=== PATIENT | female | born 1990 | race African-American/Black ===

== ENCOUNTER 2018-07-26 23:30 | Emergency (ER) | payer OTHER, SELFPAY ==
[2018-07-27] MEDS ORDERED: Ondansetron PF 4 MG/2 ML Vial ONE (00:25)
== END 2018-07-27 03:05 | disposition home or self-care (01) ==
LOC: ERS 23:30
DX: F10.129 Alcohol abuse with intoxication, unspecified (principal)
CPT/HCPCS: 96361; 96374; J2405

== ENCOUNTER 2018-11-17 15:39 | Inpatient (IN) | payer MEDICAID, OTHER, SELFPAY ==
[2018-11-17] MEDS ORDERED: Sodium Chloride 0.9% 10 ML ONE (17:32)
[2018-11-17 17:52] VITALS: BMI 22.4
[2018-11-17 19:07] LABS: Band 19 % (5-11); Hemoglobin 10.8 g/dL (12.0-16.0); Lymphocytes 9 % (21-51); MDiff Complete? YES; Mean Corpuscular Volume 81.8 fL (78.0-98.0); Mean Platelet Volume 7.8 fL (7.4-10.4); Monocytes 4 % (0-10); Neutrophil 68 % (42-75); Platelet Count 220 thou/uL (130-400); Platelet Morphology Comment Appears Adequate; RBC Distribution Width 14.7 % (11.5-14.5); Red Blood Cell (RBC) Count 3.99 mill/uL (4.20-5.40); White Blood Cell (WBC) Count 16.3 thou/uL (4.8-10.8)
[2018-11-17 19:25] LABS: Syphilis Antibody Nonreactive (Nonreactive); Syphilis Antibody Index 0.02 S/CO (<1.00 Non-Reactive)
[2018-11-17 19:26] LABS: HBSAg Index 0.29 S/CO (0-0.99); HIV (1/2) Antibody/Antigen Non-Reactive (NonReactive); HIV 1/2 INDEX 0.16 S/CO (<1.00); Hep B Surf Ag Non-Reactive S/CO (NonReactive); Thyroid Stimulating Hormone 0.4246 uIU/mL (0.35-4.94)
[2018-11-17] MEDS: cefTRIAXone\\ROCEPHIN 1 GM in Sodium Chloride 0.9% 100 ML IVPB SCH (19:57)
[2018-11-17] MEDS: Sodium Chloride 0.9% 1,000 ML IV SCH (19:58)
[2018-11-17] MEDS ORDERED: Ondansetron ODT 4 MG TAB PO PRN (20:33)
--- NOTE | 2018-11-17 20:44 | PDOC.FPROB ---
FMR OB H&P: HPI - History of Present Illness Chief Complaint: Back pain, fever History of Present Illness: 28 yo @ 16.5 wks by 1T US is admitted from [facility] for UTI with concern for possible pyelo. 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 Has had dysuria, vaginal itching intermittently since then. Endorses R sided low back pain and lower abdominal soreness. Reports yellow/white vaginal discharge for several weeks as well. Denies N/V. Drinking fluids well. At [facility] today reportedly had sterile speculum and vaginal exam with concern for cervical opening. Primary Care Physician: [facility] -Isabel FMR OB H&P: Current - Care : 6 Para: 4 Gestational age: 16.5 Dating Criteria: 1T FMR OB H&P: History - Past Medical History PMH: Genital herpes, prior gonorrhea infection - OB History OB History: 4 at term 1 spontaneous - Surgical History Sx History: None - Social History Social History: No tobacco, alcohol, drug use. - Family History Family History: DM, HTN FMR OB H&P: Medications - Current Home Medications: Medication Instructions Recorded Confirmed Type Pnv No.103/Folic/Om3s/Fish Oil 1 tab PO DAILY 11/17/18 11/17/18 History [ Gummies] Allergies/Adverse Reactions: Allergies Allergy/AdvReac Type Severity Reaction Status Date / Time No Known Allergies Allergy Verified 11/17/18 17:45 FMR OB H&P: ROS - Review of Systems General: reports: fever/chills Cardiovascular: denies: chest pain, palpitation Respiratory: denies: cough, shortness of breath Gastrointestinal: denies: abdominal pain, nausea, vomiting, diarrhea Genitourinary (Female): reports: dysuria, vaginal discharge. denies: vaginal bleeding, vaginal pressure Musculoskeletal: reports: pain, tenderness Integumentary: denies: rash FMR OB H&P: Vital Signs - Maternal Vital signs: Vital Signs - First Documented Temp Pulse Resp BP Pulse Ox 100.4 F H 105 H 18 107/58 L 99 11/17/18 17:43 11/17/18 17:43 11/17/18 17:43 11/17/18 17:43 11/17/18 17:43 FMR OB H&P: Physical Exam - Physical Exam General: NAD HEENT: normocephalic and atraumatic Heart: RRR, normal S1/S2, no murmurs/rubs/gallops General: CTAB, no respiratory distress Abdomen: soft, gravid, non-tender Musculoskeletal: pulses present, other (R sided CVA tenderness) Skin: no rash, good tugor Lymphatic: no unusual bruising or bleeding Psychiatric: intact recent and remote memory FMR OB H&P: Results - Labs Lab results: Laboratory Results - last 24 hr 11/17/18 11/17/18 11/17/18 18:28 18:28 18:28 WBC 16.3 H RBC 3.99 L Hgb 10.8 L Hct 32.7 L MCV 81.8 MCH 27.0 MCHC 33.0 RDW 14.7 H Plt Count 220 MPV 7.8 Neutrophils % (Manual) 68 Band Neuts % (Manual) 19 H Lymphocytes % (Manual) 9 L Monocytes % (Manual) 4 Neutrophils # Not Reportable Lymphocytes # Not Reportable Plt Morphology Comment Appears Adequate Sickle Cell Screen Negative For HGB S TSH 3rd Generation 0.4246 Syphilis IgG/IgM Ab Nonreactive Hep Bs Antigen Non-Reactive HIV 1&2 Antigen & Ab Non-Reactive Blood Type Antibody Screen 11/17/18 11/17/18 18:42 19:36 WBC RBC Hgb Hct MCV MCH MCHC RDW Plt Count MPV Neutrophils % (Manual) Band Neuts % (Manual) Lymphocytes % (Manual) Monocytes % (Manual) Neutrophils # Lymphocytes # Plt Morphology Comment Sickle Cell Screen TSH 3rd Generation Syphilis IgG/IgM Ab Hep Bs Antigen HIV 1&2 Antigen & Ab Blood Type A POSITIVE A POSITIVE Antibody Screen NEGATIVE FMR OB H&P: A/P - Problem List (1) Sepsis Current Visit: Yes Status: Acute Code(s): A41.9 - SEPSIS, UNSPECIFIED ORGANISM (2) Pyelonephritis affecting Current Visit: Yes Status: Acute Code(s): O23.00 - INFECTIONS OF KIDNEY IN , UNSPECIFIED TRIMESTER (3) Vaginal discharge during Current Visit: Yes Status: Acute Code(s): O26.899 - OTH RELATED CONDITIONS, UNSPECIFIED TRIMESTER; N89.8 - OTHER SPECIFIED NONINFLAMMATORY DISORDERS OF VAGINA Discussion: Date/Time: 11/17/182042 Sepsis 2/2 pyelonephritis vs complicated UTI - fever, questionable CVA tenderness, leukocytosis, tachycardia, fever 100.4 on admission. Tachycardia now improved. - Ucx, Bcx pending - continue rocephin 11/17 - continue LR @ 125 and oral hydration - renal ultrasound and US for cervical length pending Vaginal discharge - GCC, VP3 swabs pending - will treat as appropriate Genital herpes - no visible external lesions - will need to discuss sterile spec exam findings with Dr. Mccoy in am PCP: Isabel Diet: Regular Dispo: admit to inpatient women's floor, expected stay >2 midnights This H&P was discussed with Dr. Chavez and Dr. Levy who agree with the above documentation and plan. Addendum - Attending - Attending Attestation Date/Time: 11/18/18 1114 I personally evaluated the patient and discussed the management with Dr. Maloney on 11/17/2018 I agree with the History, Examination, Assessment and Plan documented above with any addition or exceptions noted below - 28 yo @16 weeks sent from [facility] due to h/o untreated UTI and now with fever and low back pain concern for possible pyelonephritis. Denies N/V. (+) dysuria. (+) vaginal discharge. PMH/PSH /All/Meds reviewed and agree with resident's documentation. T 100.4 VSS Exam repeated by me and agree with resident's findings. Labs pending. A/P: 1) Febrile UTI - repeat urine culture ordered. Start rocephin. Blood culture drawn.
[2018-11-17] MEDS: Acetaminophen 325 MG TAB PO PRN (22:42)
[2018-11-18] MEDS: Sodium Chloride 0.9% 1,000 ML IV SCH ×3 (05:42→21:25)
[2018-11-18 06:13] LABS: Band 8 % (5-11); Eosinophils 1 % (0-10); Hemoglobin 9.4 g/dL (12.0-16.0); Lymphocytes 16 % (21-51); MDiff Complete? YES; Mean Corpuscular HGB CONC 32.9 g/dL (32.0-36.0); Mean Corpuscular Hemoglobin 27.2 pg (27.0-31.0); Mean Corpuscular Volume 82.6 fL (78.0-98.0); Mean Platelet Volume 7.3 fL (7.4-10.4); Monocytes 11 % (0-10); Neutrophil 64 % (42-75); Platelet Count 176 thou/uL (130-400); RBC Distribution Width 14.6 % (11.5-14.5); Red Blood Cell (RBC) Count 3.46 mill/uL (4.20-5.40); White Blood Cell (WBC) Count 9.4 thou/uL (4.8-10.8)
[2018-11-18 06:20] LABS: Anion Gap 9 mmol/L (10-20); BUN (Urea Nitrogen) 5 mg/dL (7.0-18.7); Calc. Creatinine Clearance 130 mL/min (70-130); Calcium 8.3 mg/dL (7.8-10.44); Carbon Dioxide 24 mmol/L (22-29); Chloride 103 mmol/L (98-107); Estimated GFR-MDRD Greater than 90; Glucose 83 mg/dL (70-105); Potassium 3.3 mmol/L (3.5-5.1); Sodium 133 mmol/L (136-145)
--- NOTE | 2018-11-18 07:10 | ULT ---
BILATERAL RENAL ULTRASOUND: Date: 11/18/18 Cruz scale and Doppler color flow performed of the kidneys. INDICATION: Hydronephrosis, UTI, fever. FINDINGS: There is a slight area of prominence of the right renal pelvis. Otherwise, no overt hydronephrosis, b ilaterally. The left kidney is approximately 11 cm in length and the right kidney is between 11-12 cm in length, as demonstrated. No suspicious renal lesions are evident. Urinary bladder is decompressed , which limits evaluation. Doppler color flow reveals appropriate perfusion to each kidney. IMPRESSION: Slight prominence of right renal pelvis. Otherwise, no overt hydronephrosis. As clinically necessary, continued imaging follow-up may be obtained. POS: ROSE
--- NOTE | 2018-11-18 07:30 | ULT ---
PELVIC/OB ULTRASOUND: Date: 11/18/18 CLINICAL HISTORY: Cervical funneling. Evaluation of cervical length in a patient. FINDINGS: There is a live intrauterine gestation with a cardiac activity of the fetus documented at 150 beats/m inute. The fetus is demonstrated in a cephalic lie. Cervical length is approximately 3.4 cm, as demon strated, without sonographic evidence of cervical funneling present. Amniotic fluid volume is subject ively normal. IMPRESSION: 1. Cervical length of 3.4 cm without sonographic evidence to indicate funneling. 2. Live intrauterine gestation as discussed above. POS: ROSE
--- NOTE | 2018-11-18 08:10 | PDOC.OBAPN ---
FMR OB AP PN: Sub - Interval History Hospital Day: 2 Chief Complaint: Pt reports mild R. side back pain. Rates 2 Interval History: Pt denies any fevers overnight. Denies any N/V/D. FMR OB AP PN: Obj - Maternal Vital signs: BP: [87/53] HR: [81] RR: [16] Tmax: [98.4] Pox: [98]% on [RA] Wt: [] - Urine output I&O: 11/17/18 11/18/18 11/19/18 06:59 06:59 06:59 Intake Total 1473 Balance 1473 FMR OB AP PN: Exam - Physical Exam General: NAD, awake, alert and oriented HEENT: normocephalic and atraumatic, grossly normal vision, grossly normal hearing Neck: supple, trachea midline Chest: non-tender to palpation, no lesions Heart: normal S1/S2, no murmurs/rubs/gallops, pulses present, no edema General: CTAB, no respiratory distress, good air movement, no rales/rhonchi (-) , no wheezing Abdomen: soft, gravid, fundus(cm), non-tender, bowel sound present, no masses Deviation from normal: some mild CVA tenderness on the right Musculoskeletal: pulses present, FROM in all four extremities Neurological: sensation to pain,touch and proprioception grossly normal Skin: no rash, capillary refill <2 seconds Lymphatic: no unusual bruising or bleeding Psychiatric: intact recent and remote memory, normal mood and affect FMR OB AP PN: Data - Labs Lab results: Laboratory Results - last 24 hr 11/17/18 11/17/18 11/17/18 18:28 18:28 18:28 WBC 16.3 H RBC 3.99 L Hgb 10.8 L Hct 32.7 L MCV 81.8 MCH 27.0 MCHC 33.0 RDW 14.7 H Plt Count 220 MPV 7.8 Neutrophils % (Manual) 68 Band Neuts % (Manual) 19 H Lymphocytes % (Manual) 9 L Monocytes % (Manual) 4 Eosinophils % (Manual) Neutrophils # Not Reportable Lymphocytes # Not Reportable Plt Morphology Comment Appears Adequate Sickle Cell Screen Negative For HGB S Sodium Potassium Chloride Carbon Dioxide Anion Gap BUN Creatinine Estimated GFR (MDRD) Glucose Calcium TSH 3rd Generation 0.4246 Syphilis IgG/IgM Ab Nonreactive Hep Bs Antigen Non-Reactive HIV 1&2 Antigen & Ab Non-Reactive Blood Type Antibody Screen 11/17/18 11/17/18 11/18/18 18:42 19:36 05:52 WBC RBC Hgb Hct MCV MCH MCHC RDW Plt Count MPV Neutrophils % (Manual) Band Neuts % (Manual) Lymphocytes % (Manual) Monocytes % (Manual) Eosinophils % (Manual) Neutrophils # Lymphocytes # Plt Morphology Comment Sickle Cell Screen Sodium 133 L Potassium 3.3 L Chloride 103 Carbon Dioxide 24 Anion Gap 9 L BUN 5 L Creatinine 0.52 L Estimated GFR (MDRD) Greater than 90 Glucose 83 Calcium 8.3 TSH 3rd Generation Syphilis IgG/IgM Ab Hep Bs Antigen HIV 1&2 Antigen & Ab Blood Type A POSITIVE A POSITIVE Antibody Screen NEGATIVE 11/18/18 05:52 WBC 9.4 RBC 3.46 L Hgb 9.4 L Hct 28.6 L MCV 82.6 MCH 27.2 MCHC 32.9 RDW 14.6 H Plt Count 176 MPV 7.3 L Neutrophils % (Manual) 64 Band Neuts % (Manual) 8 Lymphocytes % (Manual) 16 L Monocytes % (Manual) 11 H Eosinophils % (Manual) 1 Neutrophils # Lymphocytes # Plt Morphology Comment Sickle Cell Screen Sodium Potassium Chloride Carbon Dioxide Anion Gap BUN Creatinine Estimated GFR (MDRD) Glucose Calcium TSH 3rd Generation Syphilis IgG/IgM Ab Hep Bs Antigen HIV 1&2 Antigen & Ab Blood Type Antibody Screen FMR OB AP PN: A/P - Problem List (1) Bacterial vaginosis Current Visit: Yes Status: Acute Code(s): N76.0 - ACUTE VAGINITIS; B96.89 - OTH BACTERIAL AGENTS THE CAUSE OF DISEASES CLASSD ELSWHR (2) Current Visit: Yes Status: Acute (3) Pyelonephritis affecting Current Visit: Yes Status: Acute Code(s): O23.00 - INFECTIONS OF KIDNEY IN , UNSPECIFIED TRIMESTER (4) Sepsis Current Visit: Yes Status: Acute Code(s): A41.9 - SEPSIS, UNSPECIFIED ORGANISM (5) Herpes genitalia Current Visit: Yes Status: Acute Code(s): A60.00 - HERPESVIRAL INFECTION OF UROGENITAL SYSTEM, UNSPECIFIED Disposition: 28 yo @ 16.6 wks by 1T Sepsis 2/2 pyelonephritis vs complicated UTI - fever, questionable CVA tenderness, leukocytosis, tachycardia, fever 100.4 on admission. Tachycardia now improved. No fevers since 1700 yesterday. Reports back pain improving. - Ucx, Bcx pending. will await blood cx. Pt will need to be free of fevers for 48 hours. - continue rocephin 11/17 - continue LR @ 125 and oral hydration - renal ultrasound- slight prominence of right renal pelvis -There was concern for cervical os opening. -transvaginal U/S shows cervical length of 3.4 cm. No vaginal bleedin, LOF reported. Vaginal discharge - GCC pending. VP3 +BV - will treat with 500 mg Flagyl BID Genital herpes - no visible external lesions - Spec exam was performed by me, Dr. Hall at [facility]. I did not visualize any active lesions. Discussion: Date/Time: 11/18/18 0809 This H&P was discussed with [] and [] who agree with the above documentation and plan. Addendum - Attending - Attending Attestation Date/Time: 11/18/18 1313 I personally evaluated the patient and discussed the management with Dr. Hall. I agree with the History, Examination, Assessment and Plan documented above with any addition or exceptions noted below.
[2018-11-18] MEDS: metroNIDAZOLE 500 MG TAB PO SCH ×3 (08:21→21:17)
[2018-11-18] MEDS: Acetaminophen 325 MG TAB PO PRN ×2 (08:21→21:17)
[2018-11-18] MEDS: Prenatal Vitamin 1 TAB PO SCH (13:11)
[2018-11-18] MEDS: cefTRIAXone\\ROCEPHIN 1 GM in Sodium Chloride 0.9% 100 ML IVPB SCH (19:28)
[2018-11-19 00:35] LABS: Chlamydia by PCR DETECTED (NotDetected); GC by PCR Not Detected (NotDetected)
[2018-11-19] MEDS: Sodium Chloride 0.9% 1,000 ML IV SCH ×2 (05:52→12:35)
[2018-11-19 06:17] LABS: Band 3 % (5-11); Eosinophils 1 % (0-10); Hemoglobin 8.6 g/dL (12.0-16.0); Lymphocytes 23 % (21-51); MDiff Complete? YES; Mean Corpuscular Volume 81.7 fL (78.0-98.0); Mean Platelet Volume 7.3 fL (7.4-10.4); Monocytes 6 % (0-10); Neutrophil 67 % (42-75); Platelet Count 164 thou/uL (130-400); RBC Distribution Width 14.5 % (11.5-14.5); Red Blood Cell (RBC) Count 3.18 mill/uL (4.20-5.40); White Blood Cell (WBC) Count 8.1 thou/uL (4.8-10.8)
[2018-11-19 06:26] LABS: Anion Gap 9 mmol/L (10-20); BUN (Urea Nitrogen) Less than 4 mg/dL (7.0-18.7); Calc. Creatinine Clearance 136 mL/min (70-130); Calcium 8.2 mg/dL (7.8-10.44); Carbon Dioxide 23 mmol/L (22-29); Chloride 107 mmol/L (98-107); Estimated GFR-MDRD Greater than 90; Glucose 89 mg/dL (70-105); Potassium 3.2 mmol/L (3.5-5.1); Sodium 136 mmol/L (136-145)
--- NOTE | 2018-11-19 08:27 | PDOC.OBAPN ---
FMR OB AP PN: Sub - Interval History Hospital Day: 2 Chief Complaint: No complaint offered Interval History: Denies any fever or chills. Denies any back pain. FMR OB AP PN: Obj - Maternal Vital signs: BP: [98/58] HR: [96] RR: [18] Tmax: [99.1] Pox: [100]% on [RA] Wt: [] - Urine output I&O: 11/18/18 11/19/18 11/20/18 06:59 06:59 06:59 Intake Total 1473 2330 Balance 1473 2330 R OB AP PN: Exam - Physical Exam General: NAD, awake, alert and oriented HEENT: normocephalic and atraumatic, grossly normal vision, grossly normal hearing, normal nasal mucosa Neck: supple, trachea midline Heart: RRR, normal S1/S2, no murmurs/rubs/gallops, pulses present, no edema General: CTAB, no respiratory distress, good air movement, no rales/rhonchi, no wheezing Abdomen: soft, non-tender, no masses Deviation from normal: No CVA tenderness noted Musculoskeletal: pulses present Neurological: sensation to pain,touch and proprioception grossly normal Skin: no rash, capillary refill <2 seconds Psychiatric: intact recent and remote memory, normal mood and affect R OB AP PN: Data - Labs Lab results: Laboratory Results - last 24 hr 11/17/18 11/17/18 11/19/18 18:28 19:45 05:56 WBC RBC Hgb Hct MCV MCH MCHC RDW Plt Count MPV Neutrophils % (Manual) Band Neuts % (Manual) Lymphocytes % (Manual) Monocytes % (Manual) Eosinophils % (Manual) Sodium 136 Potassium 3.2 L Chloride 107 Carbon Dioxide 23 Anion Gap 9 L BUN Less than 4 L Creatinine 0.50 L Estimated GFR (MDRD) Greater than 90 Glucose 89 Calcium 8.2 Chlamydia DNA (PCR) DETECTED A Chlamydia/GC Spec Info Rubella IgG Antibody Less than 0.90 L N gonorrhoeae DNA (PCR) Not Detected 11/19/18 05:56 WBC 8.1 RBC 3.18 L Hgb 8.6 L Hct 26.0 L MCV 81.7 MCH 27.0 MCHC 33.0 RDW 14.5 Plt Count 164 MPV 7.3 L Neutrophils % (Manual) 67 Band Neuts % (Manual) 3 L Lymphocytes % (Manual) 23 Monocytes % (Manual) 6 Eosinophils % (Manual) 1 Sodium Potassium Chloride Carbon Dioxide Anion Gap BUN Creatinine Estimated GFR (MDRD) Glucose Calcium Chlamydia DNA (PCR) Chlamydia/GC Spec Info Rubella IgG Antibody N gonorrhoeae DNA (PCR) FMR OB AP PN: A/P - Problem List (1) Bacterial vaginosis Current Visit: Yes Status: Acute Code(s): N76.0 - ACUTE VAGINITIS; B96.89 - OTH BACTERIAL AGENTS THE CAUSE OF DISEASES CLASSD ELSWHR (2) Current Visit: Yes Status: Acute (3) Pyelonephritis affecting Current Visit: Yes Status: Acute Code(s): O23.00 - INFECTIONS OF KIDNEY IN , UNSPECIFIED TRIMESTER (4) Sepsis Current Visit: Yes Status: Acute Code(s): A41.9 - SEPSIS, UNSPECIFIED ORGANISM (5) Herpes genitalia Current Visit: Yes Status: Acute Code(s): A60.00 - HERPESVIRAL INFECTION OF UROGENITAL SYSTEM, UNSPECIFIED (6) Depression Current Visit: Yes Status: Acute Code(s): F32.9 - MAJOR DEPRESSIVE DISORDER , SINGLE EPISODE, UNSPECIFIED (7) Anemia affecting Current Visit: Yes Status: Acute Code(s): O99.019 - ANEMIA COMPLICATING , UNSPECIFIED TRIMESTER (8) Chlamydia infection Current Visit: Yes Status: Acute Code(s): A74.9 - CHLAMYDIAL INFECTION, UNSPECIFIED (9) Rubella non-immune status, antepartum Current Visit: Yes Status: Acute Code(s): O99.89 - OTH DISEASES AND CONDITIONS COMPL PREG/CHLDBRTH; Z28.3 - UNDERIMMUNIZATION STATUS Disposition: Sepsis (Resolved) 2/2 pyelonephritis - fever, questionable CVA tenderness, leukocytosis, tachycardia, fever 100.4 on admission. Sepsis Resolved. Tachycardia now improved. No fevers since 1700 yesterday. Reports back pain improving. - Ucx- E. coli sensitive to current tx. Bcx 1/2 Bacillus- likely contaminant. Has been fever free since admission - continue rocephin 11/17 will want to continue keflex outpatient for 2 weeks and then continue ppx abx for remainder of . - continue LR @ 125 and oral hydration - renal ultrasound- slight prominence of right renal pelvis -There was concern for cervical os opening. -transvaginal U/S shows cervical length of 3.4 cm. No vaginal bleeding, LOF reported. Chlamydia and Bacterial Vaginosis Infection - Gonorrhea neg. Chlamydia (+) VP3 +BV - will treat with 500 mg Flagyl BID -Will tx with 1 dose azithromycin for chlamydia Genital herpes - no visible external lesions - Spec exam was performed by me, Dr. Hall at [facility]. I did not visualize any active lesions. Depression -Pt has hx of suicide attempt. No SI or HI at this time. -Started on Zoloft 25 mg. Denies any SE at this time. Anemia of -Hgb low. Will start ferrous sulfate and continue to trend labs outpatient. Discussion: Date/Time: 11/19/18 1992 This H&P was discussed with [] and [] who agree with the above documentation and plan. Addendum - Attending - Attending Attestation Date/Time: 11/19/18 1848 I personally evaluated the patient and discussed the management with Dr. Hall. I agree with the History, Examination, Assessment and Plan documented above with any addition or exceptions noted below.
[2018-11-19] MEDS ORDERED: Potassium Chloride 20 MEQ TAB PO SCH (09:00)
[2018-11-19] MEDS: Prenatal Vitamin 1 TAB PO SCH (10:50)
[2018-11-19] MEDS: metroNIDAZOLE 500 MG TAB PO SCH ×2 (10:50→15:53)
[2018-11-19 12:27] VITALS: TEMP 98.3
[2018-11-19 16:38] VITALS: BP 93/56
[2018-11-20] MEDS ORDERED: Azithromycin 250 MG TAB PO SCH (09:00)
== END 2018-11-19 17:41 | disposition home or self-care (01) | DRG 831 ==
LOC: 3SE 15:50
PROVIDERS: ADMIT Family Medicine; ATTEND Family Medicine
DX: O98.812 Other maternal infectious and parasitic diseases complicating pregnancy, second trimester (principal); A41.51 Sepsis due to Escherichia coli [E. coli]; N10 Acute pyelonephritis; O98.312 Other infections with a predominantly sexual mode of transmission complicating pregnancy, second trimester; D64.9 Anemia, unspecified; O23.592 Infection of other part of genital tract in pregnancy, second trimester; O99.012 Anemia complicating pregnancy, second trimester; O99.342 Other mental disorders complicating pregnancy, second trimester; Z3A.16 16 weeks gestation of pregnancy; Z28.3 Underimmunization status
CPT/HCPCS: 36415; 76770; 76857; 80048; 84443; 85007; 85025; 85027; 85660; 86762; 86780; 86850; 86900; 86901; 87040; 87077; 87086; 87186; 87340; 87389; 87480; 87491; 87510; 87591; 87660; J0696; J3490; Q0162

== ENCOUNTER 2019-04-03 07:28 | Day surgery (SDC) | payer OTHER ==
--- NOTE | 2019-04-03 08:33 | PDOC.FPROB ---
FMR OB H&P: HPI - History of Present Illness Chief Complaint: abdominal pain History of Present Illness: Melani is a 28 yo who presents to L&D at 36.2 weeks (by LMP/13.1wk sono - EDC 04/29/19) for evaluation of lower abdominal pain for the past few days with increased vaginal discharge. She has a history of pyelonephritis earlier in her , in October. She is taking Keflex 250mg suppression for recurrent UTIs, but states that she ran out and did not get it refilled. She also has a history of chlamydia in this . She was treated in January for one episode and in February for a second episode. She has had recurrent exposure to Chlamydia through the same partner who has not been treated. She also has a history of HSV with genital lesions. She states that she feels a burning sensation after she takes a shower. She has not been started on acyclovir ppx yet. +FM, denies ctx, LOF, vaginal bleeding. 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 Chlamydia x2 during HSV - Surgical History Sx History: None - Social History Social History: Denies tobacco, alcohol, or illicit drugs use. - Family History Family History: DM II and HTN FMR OB H&P: Medications - Current Home Medications: Medication Instructions Recorded Confirmed Type Pnv No.103/Folic/Om3s/Fish Oil 1 tab PO DAILY 11/17/18 02/24/19 History [ Gummies] Sertraline HCl [Zoloft] 25 mg PO DAILY #30 tab /09/0802/24/19 Rx Acyclovir 400 mg PO TID #90 tablet 04/03/19 Rx Cephalexin [Keflex] 250 mg PO HS #30 cap 04/03/19 Rx Clotrimazole 2% 3 Day Vag Cr 1 appful VAG HS 3 Days #1 tube 04/03/19 Rx [Clotrimazole 2% 3 Day Vaginal Cream] Metronidazole [metroNIDAZOLE] 500 mg PO Q12HR 7 Days #14 tab 04/03/19 Rx Allergies/Adverse Reactions: Allergies Allergy/AdvReac Type Severity Reaction Status Date / Time No Known Allergies Allergy Verified 04/03/19 10:01 FMR OB H&P: ROS - Review of Systems General: denies: fever/chills, night sweats Eyes: denies: eye pain, vision changes, double vision ENT: denies: nasal congestion, sore throat Cardiovascular: denies: chest pain, edema Respiratory: denies: cough, shortness of breath Gastrointestinal: reports: abdominal pain. denies: nausea, vomiting, diarrhea Genitourinary (Female): reports: vaginal discharge. denies: dysuria, hematuria , vaginal bleeding, contractions, vaginal pressure Musculoskeletal: denies: pain, tenderness Neurologic: denies: numbness, weakness Integumentary: denies: itching, rash Breast: denies: lumps, bumps Endocrine: denies: cold intolerance, heat intolerance Hematologic/Lymphatic: denies: prolonged or excessive bleeding Psychological: denies: depression, anxiety FMR OB H&P: Vital Signs - Maternal Vital signs: Temp 99.2, BP 103/64, HR 94, O2 100% on RA - Heart Tones Baseline: 130 Variability: moderate Acceleration: present Deceleration: absent Category: category 1 Herricks contractions every: 6 minutes FMR OB H&P: Physical Exam - Physical Exam General: NAD, awake, alert and oriented HEENT: conjunctiva clear, grossly normal vision, grossly normal hearing, other ( dry mucous membranes) Neck: supple, FROM Heart: RRR, normal S1/S2, no murmurs/rubs/gallops, pulses present, no edema General: CTAB, no respiratory distress, good air movement, no rales/rhonchi, no wheezing Abdomen: soft, gravid, other (mildly tender in suprapubic region) Musculoskeletal: normal gait and station, pulses present Neurological: no clonus, no focal deficit Skin: good tugor, capillary refill <2 seconds Lymphatic: no unusual bruising or bleeding, no purpura Psychiatric: intact recent and remote memory, good judgement and insight, other (aloof, slow to answer questions) - Pelvic Exam Vulva: normal hair distribution, no lesions, no blood (vaginal discharge noted) SVE: 0/Th/High FMR OB H&P: A/P - Problem List (1) Vulvovaginal candidiasis Current Visit: Yes Status: Acute Code(s): B37.3 - CANDIDIASIS OF VULVA AND VAGINA Assessment and Plan: Will treat with clotrimazole vaginal cream (2) Bacterial vaginosis Current Visit: No Status: Acute Code(s): N76.0 - ACUTE VAGINITIS; B96.89 - OTH BACTERIAL AGENTS THE CAUSE OF DISEASES CLASSD ELSWHR Assessment and Plan: Will treat with metronidazole (3) Herpes genitalia Current Visit: No Status: Acute Code(s): A60.00 - HERPESVIRAL INFECTION OF UROGENITAL SYSTEM, UNSPECIFIED Assessment and Plan: Pt has no current active lesions, needs to be on ppx -Will give acyclovir 400mg TID -Check for lesions at presentation for labor (4) Pyelonephritis affecting Current Visit: No Status: Acute Code(s): O23.00 - INFECTIONS OF KIDNEY IN , UNSPECIFIED TRIMESTER Assessment and Plan: Will refill keflex 250mg daily for suppression (5) Current Visit: No Status: Acute Assessment and Plan: Pt with ctx q6h, but cervical exam is closed/thick/high Appears mildly dehydrated and not wanting to drink fluids at this time. -LR 2L bolus (6) Dehydration Current Visit: Yes Status: Acute Code(s): E86.0 - DEHYDRATION Assessment and Plan: Improved after 2L LR Disposition: d/c home with f/u at [facility] Discussion: Date/Time: 04/03/19 1931 This H&P was discussed with Dr. Perez who agrees with the above documentation and plan. Signature: Bebe Hathaway MD, PGY-3
[2019-04-03] MEDS ORDERED: hydrALAZINE 20 MG/ML VIAL SLOW IVP PRN (08:34)
[2019-04-03 09:08] LABS: Bilirubin Negative (Negative); Blood, Urine Trace (Negative); Calcium Oxalate Crystals 4+ HPF (None Seen); Clarity Turbid (Clear); Glucose, Urine (Dipstick) Normal (Negative); Leukocyte 500 Leu/uL (Negative); Nitrite Negative (Negative); Protein, Urine (Dipstick) 20 mg/dL (Neg-Trace); Urobilinogen 3 mg/dL (Less than 2); WBC/HPF Greater than 50 HPF (0-3)
[2019-04-03 09:12] LABS: Bacteria/HPF 1+ HPF (None Seen)
[2019-04-03 09:13] LABS: Urine Culture Reflex No No
[2019-04-03] MEDS: Lactated Ringer's 1,000 ML IV SCH ×2 (09:20→11:00)
[2019-04-03 09:52] VITALS: BMI 24.6
[2019-04-03 10:32] LABS: Amphetamine Not Detected (NotDetected); Barbiturates Screen Not Detected (NotDetected); Benzodiazepine Screen Not Detected (NotDetected); Cocaine Metabolite Screen Not Detected (NotDetected); Medtox Control Line Valid? VALID (VALID); Medtox Reader # READER 4; Methadone Not Detected (NotDetected); Methamphetamine Not Detected (NotDetected); Opiate Screen Not Detected (NotDetected); Oxycodone Screen Not Detected (NotDetected); Phencyclidine (PCP) Not Detected (NotDetected); THC/Cannabinoid Screen Not Detected (NotDetected); Tricyclic Screen Not Detected (NotDetected)
[2019-04-05 22:07] LABS: Chlamydia by PCR Not Detected (NotDetected); GC by PCR Not Detected (NotDetected)
== END 2019-04-03 11:30 | disposition home or self-care (01) ==
LOC: L&D/OP 07:28
PROVIDERS: ATTEND Obstetrics & Gynecology
DX: O98.813 Other maternal infectious and parasitic diseases complicating pregnancy, third trimester (principal); B37.3 Candidiasis of vulva and vagina; O23.593 Infection of other part of genital tract in pregnancy, third trimester; O23.03 Infections of kidney in pregnancy, third trimester; O98.313 Other infections with a predominantly sexual mode of transmission complicating pregnancy, third trimester; A60.00 Herpesviral infection of urogenital system, unspecified; O99.283 Endocrine, nutritional and metabolic diseases complicating pregnancy, third trimester; E86.0 Dehydration; Z3A.36 36 weeks gestation of pregnancy; Z79.2 Long term (current) use of antibiotics
CPT/HCPCS: 80306; 81001; 87480; 87491; 87510; 87591; 87660

== ENCOUNTER 2019-04-03 16:50 | Inpatient (IN) | payer OTHER ==
[~2019-04-03 16:50] MED LIST: Bupivacaine 0.25% HCL 30 ML VIAL ONE
[2019-04-03 17:22] VITALS: BMI 25.2
[2019-04-03] MEDS ORDERED: hydrALAZINE 20 MG/ML VIAL SLOW IVP PRN ×2 (17:37→18:57)
--- NOTE | 2019-04-03 17:45 | PDOC.FPROB ---
FMR OB H&P: HPI - History of Present Illness Chief Complaint: leaking of fluid History of Present Illness: 28 y/o at 36.2 weeks (by LMP/13.1wk sono - EDC 04/29/19) who presents complaining of LOF. She reports she was standing in her kitchen and then all the sudden had watery discharge and has had it continuing to leak ever since. She reports one ctx on her way over here. She was evaluated in L&D this morning and diagnosed with BV and frank. She has a h/o HSV, recurrent UTI's, and recurrent chlamydia infections. +FM, denies vaginal bleeding Primary Care Physician: Clinic- Dr. Hall FMR OB H&P: Current - Care : 6 Para: [id number] Gestational age: 36w2d - OB Labs Blood type: A RH: positive Antibody Screen: negative HIV: negative RPR: negative HepBsAg: negative Rubella: non-immune Gonorrhea: negative Chlamydia: positive (treated x2) FMR OB H&P: History - Past Medical History PMH: Depression HSV - genital - OB History OB History: 4 term NSVDs 1 spontaneous - SPINNING OPERATOR History SPINNING OPERATOR History: History of abnormal pap, most recent was normal. Chlamydia x2 during HSV - Surgical History Sx History: None - Social History Social History: Denies tobacco, alcohol, or illicit drugs use. - Family History Family History: DM II and HTN FMR OB H&P: Medications - Current Home Medications: Medication Instructions Recorded Confirmed Type Pnv No.103/Folic/Om3s/Fish Oil 1 tab PO DAILY 11/17/18 04/03/19 History [ Gummies] Sertraline HCl [Zoloft] 25 mg PO DAILY #30 tab 11/19/18 04/03/19 Rx Acyclovir 400 mg PO TID #90 tablet 04/03/19 04/03/19 Rx Cephalexin [Keflex] 250 mg PO HS #30 cap 04/03/19 04/03/19 Rx Clotrimazole 2% 3 Day Vag Cr 1 appful VAG HS 3 Days #1 tube 04/03/19 Rx [Clotrimazole 2% 3 Day Vaginal Cream] Metronidazole [metroNIDAZOLE] 500 mg PO Q12HR 7 Days #14 tab 04/03/19 04/03/19 Rx Allergies/Adverse Reactions: Allergies Allergy/AdvReac Type Severity Reaction Status Date / Time No Known Allergies Allergy Verified 04/03/19 10:01 FMR OB H&P: ROS - Review of Systems General: denies: fever/chills, fatigue ENT: denies: rhinorrhea, sore throat Cardiovascular: denies: chest pain, edema Respiratory: denies: cough, shortness of breath Gastrointestinal: denies: abdominal pain, nausea, vomiting Genitourinary (Female): reports: contractions. denies: dysuria, hematuria, vaginal bleeding Musculoskeletal: denies: pain, swelling Neurologic: denies: numbness, weakness Integumentary: denies: itching, rash Endocrine: denies: cold intolerance, heat intolerance Hematologic/Lymphatic: denies: prolonged or excessive bleeding, enlarged lymph nodes FMR OB H&P: Vital Signs - Maternal Vital signs: BP 97/53, HR 92, RR 18, Temp 98.2 - Heart Tones Baseline: 140 Variability: moderate Acceleration: present Deceleration: absent Category: category 1 [place] contractions every: None FMR OB H&P: Physical Exam - Physical Exam General: NAD, awake, alert and oriented HEENT: EOMI, MMM, conjunctiva clear, grossly normal vision, grossly normal hearing Neck: supple, FROM Heart: RRR, normal S1/S2, no murmurs/rubs/gallops, pulses present, no edema General: CTAB, no respiratory distress, good air movement, no rales/rhonchi, no wheezing Abdomen: soft, gravid, non-tender, bowel sound present Musculoskeletal: normal gait and station, pulses present Neurological: no focal deficit Skin: good tugor, capillary refill <2 seconds Lymphatic: no unusual bruising or bleeding, no purpura Psychiatric: intact recent and remote memory, good judgement and insight - Pelvic Exam Vulva: normal hair distribution, no masses, no lesions, no blood Cervix: no masses, no lesions SVE: 0.5/50/-2 Membranes: Sterile spec exam performed that showed pooling and + valsalva Presentation: cephalic FMR OB H&P: A/P - Problem List (1) PROM (premature rupture of membranes) Current Visit: Yes Status: Acute Code(s): O42.90 - MURIEL ROM, 7TH0 BETW RUPT & ONST LABR, UNSP WEEKS OF GEST Assessment and Plan: Patient with amnisure positive, +pooling and valsalva on sterile spec exam No ctx, SVE 0.5/50/-2 -Will admit to L&D -Start penicillin for GBS unknown status in a patient -Pitocin for induction -LR @ 125 -Epidural as desired (2) Chlamydia infection Current Visit: No Status: Acute Code(s): A74.9 - CHLAMYDIAL INFECTION, UNSPECIFIED Assessment and Plan: Pt with recurrent CT + s/p treatment x2 with no PAPITO. Has had exposure since last treatment -Will need to monitor closely (3) Herpes genitalia Current Visit: No Status: Acute Code(s): A60.00 - HERPESVIRAL INFECTION OF UROGENITAL SYSTEM, UNSPECIFIED Assessment and Plan: No lesions seen on vulvar, vaginal, cervical exam Was started on ppx today, but hasn't taken it -Proceed with vaginal delivery Disposition: Admit to L&D Discussion: Date/Time: 04/03/19 0181 This H&P was discussed with Dr. Perez who agrees with the above documentation and plan. Signature: Bebe Hathaway MD, PGY-3
[2019-04-03 17:54] LABS: Amnisure Internal Control QC ACCEPTABLE (ACCEPTABLE); Amnisure Test RUPTURE DETECTED (No Rupture)
[2019-04-03] MEDS ORDERED: Ibuprofen 800 MG TAB PO PRN (18:57)
[2019-04-03] MEDS ORDERED: Promethazine HCl 25 MG/ML VIAL IM PRN (18:57)
[2019-04-03] MEDS ORDERED: NS / Oxytocin 40 units/1000ml 1,000 ML IV PRN (18:57)
[2019-04-03] MEDS ORDERED: Ondansetron PF 4 MG/2 ML Vial IVP PRN (18:57)
[2019-04-03] MEDS ORDERED: Lidocaine 1% (PF) 30 ML VIAL SC PRN (18:57)
[2019-04-03] MEDS ORDERED: Lactated Ringer's 1,000 ML IV SCH (19:30)
[2019-04-03] MEDS ORDERED: Penicillin G Potassium 5 MILL.UNITS in Sodium Chloride 0.9% 100 ML IVPB SCH (19:30)
[2019-04-03] MEDS ORDERED: NS w/ Oxytocin 10 units 500 ML IV SCH (19:30)
[2019-04-03 19:55] LABS: Hemoglobin 9.3 g/dL (12.0-16.0); Mean Corpuscular HGB CONC 32.5 g/dL (32.0-36.0); Mean Corpuscular Hemoglobin 23.9 pg (27.0-31.0); Mean Corpuscular Volume 73.6 fL (78.0-98.0); Mean Platelet Volume 8.8 fL (7.4-10.4); Platelet Count 215 thou/uL (130-400); RBC Distribution Width 15.5 % (11.5-14.5); Red Blood Cell (RBC) Count 3.88 mill/uL (4.20-5.40); White Blood Cell (WBC) Count 13.4 thou/uL (4.8-10.8)
[2019-04-03 20:25] LABS: Syphilis Antibody Nonreactive (Nonreactive); Syphilis Antibody Index 0.03 S/CO (<1.00 Non-Reactive)
[2019-04-03] MEDS ORDERED: Fentanyl 4 mcg/Bup 0.1% Cadd 100 ML ONE (21:40)
[2019-04-03] MEDS ORDERED: Lidocaine 1.5%/Epinephrine 1:200,000 5 ML AMPUL IJ ONE (21:41)
[2019-04-03] MEDS ORDERED: Misoprostol 200 MCG TAB ONE (22:27)
[2019-04-03] MEDS ORDERED: Carboprost 250 MCG/ML AMP ONE (22:36)
[2019-04-03] MEDS ORDERED: Methylergonovine 0.2 MG/ML VIAL ONE (22:36)
--- NOTE | 2019-04-03 22:39 | PDOC.LDPN ---
Labor & Delivery Progress Note - Subjective Subjective: comfortable, other (feeling pressure) - Objective Vital signs reviewed and normal: yes General: NAD, resting, breathing through contractions Uterine fundus: non tender Dilation: 9.5 - anterior lip Effacement: 100% Station: 1+ FHT: category 1 (accels, no decels, moderate variability) [place] contractions every: q2-3 minutes Plan: continue plan of care, pitocin for augmentation -: 28 y/o at 36.2 weeks (by LMP/13.1wk sono - EDC 04/29/19) who presents complaining of LOF. 1. PROM - amnisure positive, +pooling and valsalva on sterile spec exam. - Now anterior lip, 1+ station, Cat 1 strip - cont to reassess - Epidural in place - On PNC for unknown GBS status - continue pit for induction - LR @ 125 2. Chlamydia infection - Pt with recurrent CT + s/p treatment x2 with no PAPITO. - Has had exposure since last treatment - Will need to monitor closely 3. Herpes genitalia - No lesions seen on vulvar, vaginal, cervical exam - Was started on ppx today, but hasn't taken it - Proceed with vaginal delivery Dispo: Continue labor care, anticipate .
[2019-04-03] MEDS ORDERED: Penicillin G 2.5 MILL.units 2.5 MILL.UNITS in Premix Bag 1 BAG IVPB SCH (23:59)
[2019-04-04] MEDS ORDERED: Milk Of Magnesia 30 ML UDCUP PO PRN (00:25)
[2019-04-04] MEDS ORDERED: Bisacodyl 10 MG SUPP PR PRN (00:25)
[2019-04-04] MEDS ORDERED: Preparation H Ointment 28 GM TUBE PR PRN (00:25)
[2019-04-04] MEDS ORDERED: Benzocaine-Menthol 82.5 ML CAN TOP PRN (00:25)
[2019-04-04] MEDS ORDERED: diphenhydrAMINE 25 MG CAP PO PRN (00:25)
[2019-04-04] MEDS ORDERED: Methylergonovine 0.2 MG TAB PO PRN (00:25)
[2019-04-04] MEDS ORDERED: Adacel (T-DAP) 0.5 ML SYRINGE IM ONE (00:25)
[2019-04-04] MEDS ORDERED: Methylergonovine 0.2 MG/ML VIAL IM PRN (00:25)
[2019-04-04] MEDS ORDERED: Misoprostol 200 MCG TAB VAG PRN (00:25)
[2019-04-04 00:35] LABS: HBSAg Index 0.15 S/CO (0-0.99); Hep B Surf Ag Non-Reactive S/CO (NonReactive)
[2019-04-04] MEDS ORDERED: NS / Oxytocin 40 units/1000ml 1,000 ML ONE (03:28)
--- NOTE | 2019-04-04 04:10 | PDOC.OPDEL ---
OB Operative/Delivery Note Delivery Dr/Surgeon: Esther/Isabel/Chris Pre-Delivery Diagnosis: ruptured membrane (premature labor) Procedure/Post Delivery Dx: spontaneous vaginal delivery Weeks gestation: 36 Anesthesia: epidural - Findings A Sex: female Weight: 2.445 kg (AGA) - 1 min: 9 - 5 min: 9 - Additional Findings/Plan Placenta delivered: spontaneous Repaired Obstetrical Laceration: none Estimated blood loss: 50cc Compilations/Other Findings: Procedure: Spontaneous Vaginal Delivery Pre-op Diagnosis: 1. intrauterine presented with PROM 2. GBS unknown 3. Chlamydia x2 in with tx, but no test of cure done 4. H/o genital herpes, no active lesions, on ppx 5. H/o Pylo during , not taking routine ppx Post-op Diagnosis: 1. intrauterine , delivered 2. same as above Indications: A 28 y/o female presents with PROM Delivery Note: This is 28yo F @ 36.2 wks who delivered a viable F at 0005 on 04/04/19. Following an uneventful antepartum course, a vigorous female was delivered over an intact perineum in the occipitoanterior position. Anterior Shoulder and then remainder of the body delivered. Nuchal cord x1. The head was held down and mouth and nares were bulb suctioned. Cord clamped after delayed cord clamping and cut and cord blood collected. Placenta delivered intact in the [place] presentation with a 3 vessel cord noted. Fundal massage was performed and the fundus was firm. The cervix and vagina were inspected and found to be free of lacerations. went to nursery in good condition for routine care. Apgars were 9/9 at 1 & 5 minutes, respectively. Patient tolerated delivery well and went to after routine recovery/care. Post delivery plan: routine recovery
--- NOTE | 2019-04-04 06:52 | PDOC.PP ---
Post Progress Note Post Day #: 0 Subjective: Pt reports doing well. Resting in bed. Has gotten up and walked to bathroom with no trouble. States she had some heavy lochia earlier but it has since lightened up. PO intake tolerated: no (Has not eaten anything yet) Flatus: yes Ambulation: yes Weight Weight 56.699 kg T 98.2 P 92 BP 97/53 - Physical Examination General: NAD Cardiovascular: no m/r/g, RRR Respiratory: clear to auscultation bilaterally, non-labored breathing Abdominal: + bowel sounds, lochia (Reports as light), no distention, appropriately TTP Fundus firm & at: umbilicus Extremities: negative homans (B) Neurological: no gross focal deficits Psychiatric: A&Ox3, normal affect Result Diagrams: 04/03/19 19:39 Additional Labs: Post Labs Blood Type A POSITIVE 04/03/19 19:39 Hep Bs Antigen Non-Reactive S/CO (NonReactive) 04/03/19 19:39 (1) PROM (premature rupture of membranes) Code(s): O42.90 - MURIEL ROM, 7TH0 BETW RUPT & ONST LABR, UNSP WEEKS OF GEST Status: Acute (2) Anemia affecting Code(s): O99.019 - ANEMIA COMPLICATING , UNSPECIFIED TRIMESTER Status : Acute (3) Chlamydia infection Code(s): A74.9 - CHLAMYDIAL INFECTION, UNSPECIFIED Status: Acute (4) Herpes genitalia Code(s): A60.00 - HERPESVIRAL INFECTION OF UROGENITAL SYSTEM, UNSPECIFIED Status: Acute - Assessment/Plan 28 y/o delivered @ 005 on 04/04/19 via @ 36.3 weeks (by LMP/13.1wk sono - EDC 04/29/19) # Day 0 -Routine care -VS stable -Bottle feeding\ #Anemia of -Hgb 9.3 upon admission -EBL 50 -Awaiting AM CBC. Will trend -Iron BID # Chlamydia infection - Pt with recurrent CT + s/p treatment x2 with no PAPITO. Chlamydia pending. Tested earlier today in triage - Has had exposure since last treatment - Will need to monitor closely # Herpes genitalia - No lesions seen on vulvar, vaginal, cervical exam - Was started on ppx today, but never took it - Proceed with vaginal delivery #Hx pyelonephritis in -Had pyelo early in -Has not been taking keflex ppx #Vaginitis- Yeast/BV -Will tx with flagyl and miconazole.
[2019-04-04] MEDS: metroNIDAZOLE 500 MG TAB PO SCH ×4 (09:42→21:46)
[2019-04-04] MEDS: Ferrous Sulfate 325 MG TAB PO SCH ×3 (09:42→16:36)
[2019-04-04] MEDS: Prenatal Vitamin 1 TAB PO SCH ×2 (09:42→09:46)
[2019-04-04 13:24] LABS: #Eosinphils 0.1 thou/uL (0.0-0.7); #Lymphocytes 2.8 thou/uL (1.20-3.40); #Monocytes 0.7 thou/uL (0.11-0.59); #Neutrophils 10.9 thou/uL (1.40-6.50); %Basophils 0.2 % (0.0-1.0); %Eosinophils 0.7 % (0.0-10.0); %Lymphocytes 19.3 % (21.0-51.0); %Monocytes 4.6 % (0.0-10.0); %Neutrophils 75.2 % (42.0-75.0); Hemoglobin 8.5 g/dL (12.0-16.0); Mean Corpuscular HGB CONC 32.2 g/dL (32.0-36.0); Mean Corpuscular Hemoglobin 23.8 pg (27.0-31.0); Mean Corpuscular Volume 74.1 fL (78.0-98.0); Mean Platelet Volume 8.7 fL (7.4-10.4); Platelet Count 183 thou/uL (130-400); RBC Distribution Width 15.3 % (11.5-14.5); Red Blood Cell (RBC) Count 3.55 mill/uL (4.20-5.40); White Blood Cell (WBC) Count 14.5 thou/uL (4.8-10.8)
[2019-04-04] MEDS: Ibuprofen 800 MG TAB PO PRN (17:15)
[2019-04-04 19:06] LABS: Amphetamine Not Detected (NotDetected); Barbiturates Screen Not Detected (NotDetected); Benzodiazepine Screen Not Detected (NotDetected); Cocaine Metabolite Screen Not Detected (NotDetected); Medtox Control Line Valid? VALID (VALID); Medtox Reader # READER 1; Methadone Not Detected (NotDetected); Methamphetamine Not Detected (NotDetected); Opiate Screen Not Detected (NotDetected); Oxycodone Screen Not Detected (NotDetected); Phencyclidine (PCP) Not Detected (NotDetected); THC/Cannabinoid Screen Not Detected (NotDetected); Tricyclic Screen Not Detected (NotDetected)
[2019-04-04] MEDS: Clotrimazole 2% 3 Day Vag Cr 22.2 GM TUBE VAG SCH (21:46)
--- NOTE | 2019-04-05 01:38 | PDOC.PP ---
Post Progress Note Post Day #: 2 Subjective: Pt doing well. Pt has not had BM yet. Pt denies any dizziness, lightheadness, vision changes. Denies any fever or chills. Denies any chest pain or SOB. Pt up walking around and denies any trouble. PO intake tolerated: yes Flatus: yes Ambulation: yes Vital Signs (12 hours) Temp Pulse Resp BP Pulse Ox 04/05/19 00:15 98.4 F 96 18 113/54 L 18 L 04/04/19 20:22 98.7 F 75 16 102/59 L 98 04/04/19 16:40 98.3 F 77 16 105/57 L 04/04/19 13:55 98.8 F 90 16 108/63 98 Weight Weight 56.699 kg - Physical Examination General: NAD Cardiovascular: no m/r/g, RRR Respiratory: clear to auscultation bilaterally, non-labored breathing Abdominal: + bowel sounds, lochia, no distention, appropriately TTP Fundus firm & at: below umbilicus Extremities: negative homans (B) Neurological: no gross focal deficits Psychiatric: A&Ox3, normal affect Result Diagrams: 04/04/19 13:14 Additional Labs: Post Labs Blood Type A POSITIVE 04/03/19 19:39 Hep Bs Antigen Non-Reactive S/CO (NonReactive) 04/03/19 19:39 (1) PROM (premature rupture of membranes) Code(s): O42.90 - MURIEL ROM, 7TH0 BETW RUPT & ONST LABR, UNSP WEEKS OF GEST Status: Acute (2) Anemia affecting Code(s): O99.019 - ANEMIA COMPLICATING , UNSPECIFIED TRIMESTER Status : Acute (3) Chlamydia infection Code(s): A74.9 - CHLAMYDIAL INFECTION, UNSPECIFIED Status: Acute (4) Herpes genitalia Code(s): A60.00 - HERPESVIRAL INFECTION OF UROGENITAL SYSTEM, UNSPECIFIED Status: Acute - Assessment/Plan 28 y/o delivered @ 005 on 04/04/19 via @ 36.3 weeks (by LMP/13.1wk sono - EDC 04/29/19) # Day 1 -Routine care -VS stable -Bottle feeding #Anemia of -Hgb 9.3 upon admission. 8.5 upon recheck yesterday. -EBL 50 -Iron BID -Pt denied any sx's. VS stable # Chlamydia infection - Pt with recurrent CT + s/p treatment x2 with no PAPITO. Chlamydia pending. Tested earlier today in triage - Has had exposure since last treatment - Will need to monitor closely # Herpes genitalia - No lesions seen on vulvar, vaginal, cervical exam - Was started on ppx prior to delivery but never took it. #Hx pyelonephritis in -Had pyelo early in -Has not been taking keflex ppx #Vaginitis- Yeast/BV -Will tx with flagyl and miconazole.
[2019-04-05] MEDS: Ibuprofen 800 MG TAB PO PRN ×3 (03:35→15:59)
[2019-04-05 07:16] LABS: Hemoglobin 8.5 g/dL (12.0-16.0); Mean Corpuscular HGB CONC 32.4 g/dL (32.0-36.0); Mean Corpuscular Hemoglobin 23.7 pg (27.0-31.0); Mean Corpuscular Volume 73.1 fL (78.0-98.0); Mean Platelet Volume 8.4 fL (7.4-10.4); Platelet Count 187 thou/uL (130-400); RBC Distribution Width 15.3 % (11.5-14.5); Red Blood Cell (RBC) Count 3.58 mill/uL (4.20-5.40); White Blood Cell (WBC) Count 12.4 thou/uL (4.8-10.8)
[2019-04-05] MEDS: Prenatal Vitamin 1 TAB PO SCH (09:48)
[2019-04-05] MEDS: metroNIDAZOLE 500 MG TAB PO SCH ×3 (09:48→20:45)
[2019-04-05] MEDS: Ferrous Sulfate 325 MG TAB PO SCH ×2 (09:49→16:35)
[2019-04-05] MEDS: Docusate 100 MG CAP PO SCH ×2 (09:49→20:45)
[2019-04-05] MEDS: Clotrimazole 2% 3 Day Vag Cr 22.2 GM TUBE VAG SCH (20:44)
--- NOTE | 2019-04-06 01:54 | PDOC.PP ---
Post Progress Note Post Day #: 2 Subjective: Pt has no concerns at this time. Resting well. denies any heavy lochia. Denies any lightheadness, dizziness, or vision changes. Denies any chest pain or SOB PO intake tolerated: yes Flatus: yes Ambulation: yes Vital Signs (12 hours) Temp Pulse Resp BP 04/06/19 00:08 98.8 F 82 18 100/55 L 04/05/19 20:39 98.5 F 83 18 103/61 Weight Weight 56.699 kg - Physical Examination General: NAD Cardiovascular: no m/r/g, RRR Respiratory: clear to auscultation bilaterally, non-labored breathing Abdominal: + bowel sounds, lochia (Reports as light), no distention, appropriately TTP Extremities: negative homans (B) Skin: CS incision dry & intact, no rash Neurological: no gross focal deficits Psychiatric: A&Ox3, normal affect Result Diagrams: 04/05/19 07:02 Additional Labs: Post Labs Blood Type A POSITIVE 04/03/19 19:39 Hep Bs Antigen Non-Reactive S/CO (NonReactive) 04/03/19 19:39 (1) PROM (premature rupture of membranes) Code(s): O42.90 - MURIEL ROM, 7TH0 BETW RUPT & ONST LABR, UNSP WEEKS OF GEST Status: Acute (2) Anemia affecting Code(s): O99.019 - ANEMIA COMPLICATING , UNSPECIFIED TRIMESTER Status : Acute (3) Chlamydia infection Code(s): A74.9 - CHLAMYDIAL INFECTION, UNSPECIFIED Status: Resolved (4) Herpes genitalia Code(s): A60.00 - HERPESVIRAL INFECTION OF UROGENITAL SYSTEM, UNSPECIFIED Status: Suspected - Assessment/Plan 28 y/o delivered @ 005 on 04/04/19 via @ 36.3 weeks (by LMP/13.1wk sono - EDC 04/29/19) # Day 2 -Routine care -VS stable -Bottle feeding #Anemia of -Hgb 9.3 upon admission. 8.5 on last two CBC. Stable -EBL 50 -Iron BID -Pt denied any sx's. VS stable # Chlamydia infection - Pt with recurrent CT + s/p treatment x2 with no PAPITO. Chlamydia PAPITO negative taken in triage earlier before admitted for labor - Has had exposure since last treatment - has been monitored for 48 hrs # Herpes genitalia - No lesions seen on vulvar, vaginal, cervical exam - Was started on ppx prior to delivery but never took it. #Hx pyelonephritis in -Had pyelo early in -Has not been taking keflex ppx #Vaginitis- Yeast/BV -Will tx with flagyl and miconazole.
[2019-04-06] MEDS: Ferrous Sulfate 325 MG TAB PO SCH (09:23)
[2019-04-06] MEDS: metroNIDAZOLE 500 MG TAB PO SCH (09:23)
[2019-04-06] MEDS: Prenatal Vitamin 1 TAB PO SCH (09:23)
[2019-04-06] MEDS: Docusate 100 MG CAP PO SCH (09:24)
[2019-04-06 10:21] VITALS: BP 113/63; TEMP 96
== END 2019-04-06 11:00 | disposition home or self-care (01) | DRG 806 ==
LOC: L&D/OP 16:50 → L&D 04-04 01:08 → 3SW 04-04 14:00
PROVIDERS: ADMIT Family Medicine; ATTEND Family Medicine
PROC: 10E0XZZ Delivery of Products of Conception, External Approach (ICD-10-PCS; principal; 2019-04-04)
DX: O42.913 Preterm premature rupture of membranes, unspecified as to length of time between rupture and onset of labor, third trimester (principal); O98.82 Other maternal infectious and parasitic diseases complicating childbirth; Z37.0 Single live birth; O98.32 Other infections with a predominantly sexual mode of transmission complicating childbirth; O99.344 Other mental disorders complicating childbirth; F32.9 Major depressive disorder, single episode, unspecified; A60.00 Herpesviral infection of urogenital system, unspecified; O69.81X0 Labor and delivery complicated by cord around neck, without compression, not applicable or unspecified; O99.02 Anemia complicating childbirth; D64.9 Anemia, unspecified; B96.89 Other specified bacterial agents as the cause of diseases classified elsewhere; A56.02 Chlamydial vulvovaginitis; Z3A.36 36 weeks gestation of pregnancy; Z87.440 Personal history of urinary (tract) infections; Z28.21 Immunization not carried out because of patient refusal
CPT/HCPCS: 36415; 80306; 81001; 84112; 85025; 85027; 86780; 86850; 86900; 86901; 87340; 87480; 87491; 87510; 87591; 87660; 96360; 96361; 99285; J2001; J2210; J2540; J2590; J3490; S0020

== ENCOUNTER 2019-05-23 05:12 | Emergency (ER) | payer OTHER | END 2019-05-23 05:23 | disposition home or self-care (01) | LOC: ERS 05:12 | DX: H66.92 Otitis media, unspecified, left ear (principal) | CPT/HCPCS: 99282 ==

== ENCOUNTER 2019-10-09 11:06 | Emergency (ER) | payer OTHER ==
[2019-10-09 12:41] LABS: Bilirubin Negative (Negative); Blood, Urine 2+ (Negative); Clarity Turbid (Clear); Glucose, Urine (Dipstick) Normal (Negative); Leukocyte 500 Leu/uL (Negative); Mucous/LPF 2+ LPF (<2+); Nitrite 2+ (Negative); Protein, Urine (Dipstick) 50 mg/dL (Neg-Trace); RBC/HPF 21-50 HPF (0-3); Squamous Epithelial 0-3 HPF (0-3); Transitional Epithelial 0-3 HPF (None Seen); Urobilinogen Normal mg/dL (Less than 2); WBC/HPF Greater than 50 HPF (0-3)
[2019-10-09 12:42] LABS: Pregnancy Test - Urine (BHCG) Negative (Negative)
[2019-10-09 12:43] LABS: Pregu Control Background? CLEAR/WHITE (CLR/WHITE); Pregu Control Bar Appear? YES (CONTROL BAR)
[2019-10-09 12:48] LABS: Bacteria/HPF 3+ HPF (None Seen)
== END 2019-10-09 13:15 | disposition home or self-care (01) ==
LOC: ERS 11:06
DX: N39.0 Urinary tract infection, site not specified (principal); F31.9 Bipolar disorder, unspecified; F17.210 Nicotine dependence, cigarettes, uncomplicated
CPT/HCPCS: 81003; 81015; 81025; 99284

== ENCOUNTER 2019-10-20 15:56 | Emergency (ER) | payer OTHER, SELFPAY ==
[~2019-10-20 15:56] MED LIST changes: -Bupivacaine 0.25% HCL 30 ML VIAL ONE; +Iopamidol-370 76% 500 ML 1 ML ONE
[2019-10-20] MEDS ORDERED: Cefepime 2 GM VIAL ONE (16:26)
[2019-10-20 16:28] LABS: Hemoglobin 11.3 g/dL (12.0-16.0); Mean Corpuscular HGB CONC 31.4 g/dL (32.0-36.0); Mean Corpuscular Hemoglobin 23.4 pg (27.0-31.0); Mean Corpuscular Volume 74.6 fL (78.0-98.0); Mean Platelet Volume 8.9 fL (7.4-10.4); Platelet Count 452 thou/uL (130-400); RBC Distribution Width 20.1 % (11.5-14.5); Red Blood Cell (RBC) Count 4.82 mill/uL (4.20-5.40); White Blood Cell (WBC) Count 13.7 thou/uL (4.8-10.8)
[2019-10-20 16:37] LABS: BHCG - Serum Negative (NEGATIVE); Pregs Control Background? CLEAR/WHITE (CLR/WHITE); Pregs Control Bar Appear? YES (CONTROL BAR)
[2019-10-20 16:42] LABS: Bacteria/HPF 4+ HPF (None Seen); Bilirubin Negative (Negative); Blood, Urine 1+ (Negative); Clarity Extra Turbid (Clear); Glucose, Urine (Dipstick) Normal (Negative); Leukocyte 500 Leu/uL (Negative); Nitrite 2+ (Negative); Protein, Urine (Dipstick) 100 mg/dL (Neg-Trace); Squamous Epithelial 0-3 HPF (0-3); Urobilinogen Normal mg/dL (Less than 2); WBC/HPF Greater than 50 HPF (0-3)
[2019-10-20 16:49] LABS: Band 9 % (5-11); Hypochromia SLIGHT = 6-15 cells (100X) (0-5/hpf); Lymphocytes 13 % (21-51); MDiff Complete? YES; Microcytosis SLIGHT = 6-15 cells (100X) (0-5/hpf); Monocytes 6 % (0-10); Neutrophil 70 % (42-75); Platelet Morphology Comment Appears Increased; Reactive Lymphocytes 2 % (0-10); Stomatocytes SLIGHT = 2-5 cells (100X) (0-1/hpf); Target Cells SLIGHT = 2-5 cells (100X) (0-1/hpf)
[2019-10-20 16:50] LABS: ALT (SGPT) 11 U/L (8-55); AST (SGOT) 11 U/L (5-34); Albumin 4.2 g/dL (3.5-5.0); Alkaline Phosphatase 80 U/L (40-110); Anion Gap 13 mmol/L (10-20); BUN (Urea Nitrogen) 7 mg/dL (7.0-18.7); Bilirubin, Total 0.4 mg/dL (0.2-1.2); Calc. Creatinine Clearance 0 mL/min (70-130); Calcium 9.5 mg/dL (7.8-10.44); Carbon Dioxide 30 mmol/L (22-29); Chloride 99 mmol/L (98-107); Estimated GFR-MDRD Greater than 90; Globulin 3.8 g/dL (2.4-3.5); Glucose 76 mg/dL (70-105); Lipase 16 U/L (8-78); Potassium 3.2 mmol/L (3.5-5.1); Sodium 139 mmol/L (136-145)
--- NOTE | 2019-10-20 17:29 | CT ---
CT ABDOMEN WITH CONTRAST CT PELVIS WITH CONTRAST: DATE: 10/20/2019 HISTORY: 28-year-old female with mid abdominal pain, anorexia, dysuria, urinary frequency. COMPARISON: None TECHNIQUE: IV injection of iodinated contrast media: administered. Oral contrast media:Not administered FINDINGS: Because of lack of visceral fat, the small bowel, colon, and appendix, are difficult to evaluate. The re is definitely no small bowel dilation. It is more difficult to evaluate for diverticulitis. Uterus is retroverted and has heterogeneous enhancement of the myometrium. Urinary bladder wall thick ness is within normal limits. No evidence of pyelonephritis or hydronephrosis. Right kidney is ptotic. Normal abdominal aorta, liver, adrenals, pancreas, and spleen. No pleural effusion or consoli dation at lung bases. No large volumes of ascites. A normal short segment of the appendix is visualized. The rest of the appendix is not visualized. IMPRESSION: 1. Because of lack of visceral fat, the intrapelvic contents, especially the rectosigmoid colon and s mall intestine, are difficult to evaluate. 2. Heterogeneous enhancement of the myometrium of a retroverted uterus. This is nonspecific. 3. Upper abdominal solid organs appear normal.
[2019-10-20] MEDS ORDERED: Vancomycin 1 GM/200 ML BAG ONE (17:36)
== END 2019-10-20 18:59 | disposition home or self-care (01) ==
LOC: ERS 15:56
DX: N10 Acute pyelonephritis (principal); F17.210 Nicotine dependence, cigarettes, uncomplicated; F31.9 Bipolar disorder, unspecified
CPT/HCPCS: 74177; 80053; 81003; 81015; 83605; 83690; 84703; 85025; 87040; 87077; 87086; 87186; 96365; 96366; 96368; J0692; J3370; Q9967

== ENCOUNTER 2019-11-18 04:26 | Emergency (ER) | payer MEDICAID, SELFPAY ==
[2019-11-18] MEDS ORDERED: Ketorolac Tromethamine 30 MG/ML VIAL ONE (04:39)
== END 2019-11-18 05:07 | disposition home or self-care (01) ==
LOC: ERS 04:26
DX: K02.9 Dental caries, unspecified (principal); F31.9 Bipolar disorder, unspecified; F17.210 Nicotine dependence, cigarettes, uncomplicated
CPT/HCPCS: 96372; 99283; J1885

== ENCOUNTER 2020-02-04 23:08 | Emergency (ER) | payer SELFPAY | END 2020-02-04 23:51 | disposition home or self-care (01) | LOC: ERS 23:08 | DX: F10.129 Alcohol abuse with intoxication, unspecified (principal); F31.9 Bipolar disorder, unspecified; F17.210 Nicotine dependence, cigarettes, uncomplicated | CPT/HCPCS: 99281 ==

== ENCOUNTER 2021-06-29 11:11 | Inpatient (IN) | payer MEDICAID, SELFPAY ==
[2021-06-29] MEDS ORDERED: Acetaminophen 500 MG TAB ONE (11:53)
[2021-06-29 12:02] LABS: Bilirubin Negative (Negative); Blood, Urine 1+ (Negative); Clarity Turbid (Clear); Glucose, Urine (Dipstick) Normal (Negative); Ketone, Urine Negative (Negative); Leukocyte 500 Leu/uL (Negative); Nitrite Negative (Negative); Protein, Urine (Dipstick) 70 mg/dL (Neg-Trace); Specific Gravity, Urine 1.016 (1.002-1.036); Squamous Epithelial 0-3 HPF (0-3)
[2021-06-29 12:09] LABS: Hemoglobin 10.8 g/dL (12.0-16.0); Mean Corpuscular HGB CONC 31.9 g/dL (32.0-36.0); Mean Corpuscular Hemoglobin 24.6 pg (27.0-31.0); Mean Corpuscular Volume 77.1 fL (78.0-98.0); Mean Platelet Volume 8.9 fL (7.4-10.4); Platelet Count 207 thou/uL (130-400); RBC Distribution Width 17.2 % (11.5-14.5); Red Blood Cell (RBC) Count 4.38 mill/uL (4.20-5.40); White Blood Cell (WBC) Count 11.5 thou/uL (4.8-10.8)
[2021-06-29 12:11] LABS: Bacteria/HPF 3+ HPF (None Seen); WBC/HPF 21-50 HPF (0-3)
[2021-06-29 12:17] LABS: ALT (SGPT) 11 U/L (8-55); AST (SGOT) 12 U/L (5-34); Albumin 3.8 g/dL (3.5-5.0); Alkaline Phosphatase 72 U/L (40-110); Anion Gap 14 mmol/L (10-20); BUN (Urea Nitrogen) 6 mg/dL (7.0-18.7); Bilirubin, Total 0.5 mg/dL (0.2-1.2); Calc. Creatinine Clearance 0 mL/min (70-130); Calcium 9.2 mg/dL (7.8-10.44); Carbon Dioxide 27 mmol/L (22-29); Chloride 97 mmol/L (98-107); Globulin 3.8 g/dL (2.4-3.5); Glucose 129 mg/dL (70-105); Protein, Total 7.6 g/dL (6.0-8.3); Sodium 135 mmol/L (136-145)
[2021-06-29 12:22] LABS: Potassium 2.7 mmol/L (3.5-5.1)
[2021-06-29] MEDS ORDERED: Cefepime 2 GM VIAL ONE (12:28)
[2021-06-29] MEDS ORDERED: Sodium Chloride 0.9% 100 ML ONE (12:28)
[2021-06-29 12:38] LABS: Band 18 % (5-11); Eosinophils 1 % (0-10); Hypochromia SLIGHT = 6-15 cells (100X) (0-5/hpf); Lymphocytes 26 % (21-51); MDiff Complete? YES; Microcytosis SLIGHT = 6-15 cells (100X) (0-5/hpf); Monocytes 11 % (0-10); Neutrophil 44 % (42-75); Platelet Morphology Comment Appears Adequate; Polychromasia SLIGHT = 2-3 cells (100X) (0-2/hpf)
[2021-06-29 12:45] LABS: Pregnancy Test - Urine (BHCG) Negative (Negative); Pregu Control Background? CLEAR/WHITE (CLR/WHITE); Pregu Control Bar Appear? YES (CONTROL BAR); Specific Gravity 1.016 (1.002-1.036)
[2021-06-29] MEDS ORDERED: Vancomycin 1 GM/200 ML BAG ONE (13:00)
[2021-06-29 13:36] LABS: Magnesium 2.2 mg/dL (1.6-2.6)
[2021-06-29] MEDS ORDERED: Potassium Chloride 30 MEQ in Sodium Chloride 0.9% 250 ML 250 ML IVPB SCH (14:30)
[2021-06-29] MEDS ORDERED: Acetaminophen 325 MG TAB PO PRN (15:14)
[2021-06-29] MEDS ORDERED: Ondansetron PF 4 MG/2 ML Vial IVP PRN (15:14)
[2021-06-29] MEDS ORDERED: Ketorolac Tromethamine 30 MG/ML VIAL IVP PRN (15:17)
[2021-06-29] MEDS ORDERED: NS 0.9% w/ 40 MEQ KCL 1,000 ML IV SCH (15:30)
[2021-06-29 16:25] VITALS: BP 92/50; TEMP 98.2
[2021-06-29 16:29] VITALS: BMI 20.1
[2021-06-29] MEDS ORDERED: Potassium Chloride 20 MEQ TAB PO SCH (17:00)
[2021-06-30] MEDS ORDERED: cefTRIAXone\\ROCEPHIN 1 GM in Sodium Chloride 0.9% 100 ML IVPB SCH (00:01)
[2021-06-30] MEDS ORDERED: Vancomycin HCl 750 MG in Sodium Chloride 0.9% 250 ML 250 ML IVPB SCH (01:00)
== END 2021-06-29 17:45 | disposition left against medical advice (07) | DRG 690 ==
LOC: ERS 11:11 → 2NO 13:29
PROVIDERS: ADMIT Family Medicine; ATTEND Family Medicine
DX: N12 Tubulo-interstitial nephritis, not specified as acute or chronic (principal); E87.1 Hypo-osmolality and hyponatremia; E87.6 Hypokalemia; F31.9 Bipolar disorder, unspecified; D64.9 Anemia, unspecified; F17.210 Nicotine dependence, cigarettes, uncomplicated; Z79.899 Other long term (current) drug therapy
CPT/HCPCS: 36415; 71045; 80053; 81003; 81015; 81025; 83605; 83735; 85025; 87040; 87077; 87086; 87186; 93005; 94760; J0692; J3370; J3480; J3490; J7050

== ENCOUNTER 2022-04-18 19:05 | Emergency (ER) | payer SELFPAY ==
[2022-04-18 19:39] LABS: Bilirubin Negative (Negative); Blood, Urine Negative (Negative); Clarity Turbid (Clear); Glucose, Urine (Dipstick) Normal (Negative); Ketone, Urine Negative (Negative); Leukocyte 75 Leu/uL (Negative); Mucous/LPF Rare LPF (<2+); Nitrite Negative (Negative); Pregnancy Test - Urine (BHCG) Negative (Negative); Pregu Control Background? CLEAR/WHITE (CLR/WHITE); Pregu Control Bar Appear? YES (CONTROL BAR); Protein, Urine (Dipstick) 10 mg/dL (Neg-Trace); RBC/HPF 0-3 HPF (0-3); Specific Gravity 1.023 (1.002-1.036); Specific Gravity, Urine 1.023 (1.002-1.036); Squamous Epithelial 0-3 HPF (0-3); Urobilinogen Normal mg/dL (Less than 2); pH, Urine 7.5 (5.0-9.0)
[2022-04-18 19:42] LABS: #Eosinphils 0.1 thou/uL (0.0-0.7); #Lymphocytes 2.9 thou/uL (1.20-3.40); #Monocytes 0.5 thou/uL (0.11-0.59); #Neutrophils 3.4 thou/uL (1.40-6.50); %Basophils 0.7 % (0.0-1.0); %Eosinophils 1.8 % (0.0-10.0); %Lymphocytes 41.7 % (21.0-51.0); %Monocytes 7.3 % (0.0-10.0); %Neutrophils 48.5 % (42.0-75.0); Hemoglobin 10.8 g/dL (12.0-16.0); Mean Corpuscular HGB CONC 30.4 g/dL (32.0-36.0); Mean Corpuscular Hemoglobin 24.1 pg (27.0-31.0); Mean Platelet Volume 9.1 fL (7.4-10.4); Platelet Count 221 thou/uL (130-400); RBC Distribution Width 16.8 % (11.5-14.5); Red Blood Cell (RBC) Count 4.48 mill/uL (4.20-5.40)
[2022-04-18 19:48] LABS: Bacteria/HPF Rare-Few HPF (None Seen)
[2022-04-18] MEDS ORDERED: Morphine 4 MG/ML VIAL ONE (19:49)
[2022-04-18 19:50] LABS: BHCG - Serum Negative (NEGATIVE); Pregs Control Background? CLEAR/WHITE (CLR/WHITE); Pregs Control Bar Appear? YES (CONTROL BAR)
[2022-04-18] MEDS ORDERED: Ondansetron PF 4 MG/2 ML Vial ONE (19:50)
[2022-04-18 20:07] LABS: ALT (SGPT) 7 U/L (8-55); AST (SGOT) 12 U/L (5-34); Alkaline Phosphatase 71 U/L (40-110); Anion Gap 12 mmol/L (10-20); BUN (Urea Nitrogen) 9 mg/dL (7.0-18.7); Bilirubin, Total 0.3 mg/dL (0.2-1.2); Calc. Creatinine Clearance 0 mL/min (70-130); Calcium 8.9 mg/dL (7.8-10.44); Carbon Dioxide 23 mmol/L (22-29); Chloride 108 mmol/L (98-107); Estimated GFR 104; Globulin 2.8 g/dL (2.4-3.5); Glucose 84 mg/dL (70-105); Potassium 3.5 mmol/L (3.5-5.1); Protein, Total 6.8 g/dL (6.0-8.3); Sodium 139 mmol/L (136-145)
[2022-04-19 13:06] LABS: Chlamydia by PCR Not Detected (NotDetected); GC by PCR Not Detected (NotDetected)
== END 2022-04-18 23:36 | disposition home or self-care (01) ==
LOC: ERS 19:05
DX: N39.0 Urinary tract infection, site not specified (principal); A59.01 Trichomonal vulvovaginitis; B96.89 Other specified bacterial agents as the cause of diseases classified elsewhere; F17.210 Nicotine dependence, cigarettes, uncomplicated
CPT/HCPCS: 36415; 74177; 76856; 80053; 81003; 81025; 84703; 85025; 87086; 87480; 87491; 87510; 87591; 87660; 93976; 94760; 96374; 96375; J2270; J2405; Q9967

== ENCOUNTER 2025-03-31 10:22 | Emergency (ER) | payer SELFPAY ==
[2025-03-31] MEDS ORDERED: Ketorolac Tromethamine 30 MG (1 mL) VIAL ONE (11:39)
== END 2025-03-31 12:26 | disposition home or self-care (01) ==
LOC: ERS 10:22
DX: S13.4XXA Sprain of ligaments of cervical spine, initial encounter (principal); F17.210 Nicotine dependence, cigarettes, uncomplicated; V89.2XXA Person injured in unspecified motor-vehicle accident, traffic, initial encounter
CPT/HCPCS: 72040; 96372; 99283; J1885